=== PATIENT | male | born 1945 | race Caucasian/White ===

== ENCOUNTER 2018-05-12 13:02 | Day surgery (SDC) | payer MEDICARE, BC ==
[~2018-05-12] VITALS: Ht 188 cm; Wt 81.8 kg
[2018-05-12] VITALS (9 sets, daily range): BP systolic 143–166; BP diastolic 82–97
[2018-05-12] MEDS ORDERED: diphenhydrAMINE 50 mg/ml inj ONE (13:43)
[2018-05-12] MEDS ORDERED: levoFLOXACIN-Levaquin 500mg/D5 100 ML IV ONE (13:43)
[2018-05-12] MEDS ORDERED: fentaNYL/PF 50MCG/1 ML 2ML syringe ONE (13:43)
[2018-05-12] MEDS ORDERED: MIDAZolam 5mg/5ml vial ONE (13:43)
[2018-05-12] MEDS ORDERED: NO HOME MEDS (13:44)
[2018-05-12] MEDS ORDERED: glucagon, human recombinant 1mg kit ONE ×2 (13:44)
[2018-05-12] MEDS ORDERED: LIDOcaine Viscous 15ml cup ONE (13:44)
[2018-05-12] MEDS ORDERED: iohexol 300 MG/1 ML 50ml polymer ONE (13:44)
== END 2018-05-12 17:05 | disposition home or self-care (01) ==
LOC: GI LAB 13:02
PROVIDERS: ATTEND Internal Medicine Gastroenterology
DX: K83.1 Obstruction of bile duct (principal); K83.8 Other specified diseases of biliary tract
CPT/HCPCS: 43274; 99152; 99153; J1200; J1610; J1956; J2250; J3010; J7030; Q9967; 88108; 88305; A4620